=== PATIENT | male | born 1960 | race Caucasian/White ===

== ENCOUNTER → 2016-12-09 | Outpatient (CLI) | payer OTHER ==
[~2016-12-09] MED LIST: LORA10TA51 PO; MAGN400T6 PO; OMEP20TA14 PO; SUMA100T15 PO
[2016-12-09 11:22] LABS: ALB/GLOB RATIO 1.4 (0.9-2); ALT/SGPT 42 U/L (12-78); AST/SGOT 18 U/L (15-37); BLOOD UREA NITROGEN 15 mg/dl (7-18); BUN/CREATININE RATIO 12.4 (10-20); CALCIUM 8.7 mg/dl (8.5-10.1); CARBON DIOXIDE 30 mmol/L (21-32); CHLORIDE 108 mmol/L (98-107); CHOLESTEROL 196 mg/dl (0-200); GLUCOSE 154 mg/dl (70-99); POTASSIUM 4.2 mmol/L (3.5-5.1); SODIUM 142 mmol/L (136-145); TRIGLYCERIDES 218 mg/dl (0-150); VERY LOW DENSITY LIPOPROT CALC 44 mg/dl
[2016-12-09 11:31] LABS: ALKALINE PHOSPHATASE 105 U/L (45-117); CHOLESTEROL/HDL RATIO 5.4; HDL CHOLESTEROL 36 mg/dl; LDL CHOLESTEROL CALCULATED 116 mg/dl; THYROID STIMULATING HORMONE 0.208 uIu/ml (0.300-4.500)
[2016-12-09 12:47] LABS: ESTIMATED AVERAGE GLUCOSE 151 mg/dl; HA1C FLAG Normal (Normal)
--- NOTE | 2016-12-14 08:23 | CODING QUERY MEDICAL NECESSITY ---
CQSUPPORTING DIAGNOSIS NEEDED A supporting diagnosis is required for the test/procedure performed on this patient in order for us to be reimbursed by the patient's insurance. Please provide a supporting diagnosis for the following test/procedure listed below next to the test name along with your signature. *If there is no additional diagnosis for this patient that would support the following test/procedure please document that below next to the test/procedure. Test(s)/Procedure(s) that require a supporting diagnosis: DOS 12/09/16 GLYCATED HEMOGLOBIN TEST Provider Signature: Date: Thank you Purnima Qureshi [facility] Information [facility] Once completed, please kindly fax back to [phone] For questions please call [phone]
== END | disposition home or self-care (01) ==
LOC: C.LAB 10:07
PROVIDERS: ATTEND Family Medicine
DX: E78.5 Hyperlipidemia, unspecified (principal); R73.03 Prediabetes; R94.6 Abnormal results of thyroid function studies; Z11.59 Encounter for screening for other viral diseases

== ENCOUNTER → 2016-12-25 | Outpatient (CLI) | payer OTHER | END | disposition home or self-care (01) | LOC: C.PATHSPEC 17:45 | PROVIDERS: ATTEND Orthopaedic Surgery | DX: R22.31 Localized swelling, mass and lump, right upper limb (principal) ==

== ENCOUNTER → 2017-01-09 | Outpatient (CLI) | payer OTHER ==
[~2017-01-09] VITALS: Ht 180.3 cm; Wt 92.4 kg
[2017-01-09 16:55] VITALS: BP 124/85; PULSE 85; Ht 180.3 cm; Wt 92.4 kg
== END ==
LOC: C.NEUR 15:35
PROVIDERS: ATTEND Internal Medicine Pulmonary Disease
DX: G47.30 Sleep apnea, unspecified (principal)

== ENCOUNTER → 2017-01-30 | Outpatient (CLI) | payer OTHER ==
[2017-01-30 15:23] LABS: THYROID STIMULATING HORMONE 0.207 uIu/ml (0.300-4.500)
[2017-01-30 15:26] LABS: RATIO 8.6 mcg/mg (0-30.0)
[2017-01-31 06:48] LABS: ESTIMATED AVERAGE GLUCOSE 134 mg/dl; HA1C FLAG Normal (Normal)
[2017-02-01 19:41] LABS: TSI <89 % baseline (<140)
--- NOTE | 2017-02-06 11:59 | CODING QUERY MEDICAL NECESSITY ---
CQSUPPORTING DIAGNOSIS NEEDED A supporting diagnosis is required for the test/procedure performed on this patient in order for us to be reimbursed by the patient's insurance. Please provide a supporting diagnosis for the following test/procedure listed below next to the test name along with your signature. *If there is no additional diagnosis for this patient that would support the following test/procedure please document that below next to the test/procedure. Test(s)/Procedure(s) that require a supporting diagnosis: DOS 01/30/17 VITAMIN D TEST VITAMIN B12 TEST Provider Signature: Date: Thank you Purinma Qureshi [facility] Information Management Once completed, please kindly fax back to [phone] For questions please call [phone]
== END | disposition home or self-care (01) ==
LOC: C.LAB1850 13:36
PROVIDERS: ATTEND Internal Medicine Endocrinology, Diabetes & Metabolism
DX: E11.9 Type 2 diabetes mellitus without complications (principal); R94.6 Abnormal results of thyroid function studies; E55.9 Vitamin D deficiency, unspecified

== ENCOUNTER → 2017-07-12 | Outpatient (CLI) | payer OTHER ==
[2017-07-12 10:31] LABS: ALT/SGPT 51 U/L (12-78); AST/SGOT 25 U/L (15-37); BLOOD UREA NITROGEN 16 mg/dl (7-18); BUN/CREATININE RATIO 12.2 (10-20); CARBON DIOXIDE 28 mmol/L (21-32); CHLORIDE 106 mmol/L (98-107); CHOLESTEROL 93 mg/dl (0-200); GLUCOSE 98 mg/dl (70-99); POTASSIUM 4.4 mmol/L (3.5-5.1); SODIUM 139 mmol/L (136-145); TRIGLYCERIDES 116 mg/dl (0-150); VERY LOW DENSITY LIPOPROT CALC 23 mg/dl
[2017-07-12 10:39] LABS: ALB/GLOB RATIO 1.5 (0.9-2); ALKALINE PHOSPHATASE 85 U/L (45-117); CHOLESTEROL/HDL RATIO 2.4; HDL CHOLESTEROL 39 mg/dl; LDL CHOLESTEROL CALCULATED 31 mg/dl
[2017-07-12 11:02] LABS: ESTIMATED AVERAGE GLUCOSE 128 mg/dl; HA1C FLAG Normal (Normal)
== END | disposition home or self-care (01) ==
LOC: C.LAB 09:17
PROVIDERS: ATTEND Internal Medicine Endocrinology, Diabetes & Metabolism
DX: I10 Essential (primary) hypertension (principal); E11.9 Type 2 diabetes mellitus without complications; R94.6 Abnormal results of thyroid function studies; E55.9 Vitamin D deficiency, unspecified

== ENCOUNTER → 2017-10-02 | Outpatient (CLI) | payer OTHER ==
[~2017-10-02] VITALS: Ht 177.8 cm; Wt 88.8 kg
[2017-10-02 16:12] VITALS: BP 120/80; PULSE 123; Ht 177.8 cm; Wt 88.8 kg
== END | disposition home or self-care (01) ==
LOC: C.NEUR 15:19
PROVIDERS: ATTEND Physician Assistant Medical
DX: G47.30 Sleep apnea, unspecified (principal)

== ENCOUNTER → 2017-10-23 | Outpatient (CLI) | payer OTHER ==
--- NOTE | 2017-10-23 14:53 | DIAGNOSTIC IMAGING REPORT ---
R RIBS UNILATERAL WITH PA CHEST (7 views) CLINICAL HISTORY: W19.XXXA Fall, [id number] Rib pain on right [id number] COMPARISON STUDY: No previous studies for comparison. FINDINGS: The erect chest reveals an old right clavicular fracture. There is no pneumothorax. There is no focal pulmonary consolidation. No right-sided rib fractures are visualized. IMPRESSION: 1. No evidence of pneumothorax. No right-sided rib fractures are visualized. Electronically signed by: Nico Purcell M.D. 10/23/2017 2:51 PM Dictated Date/Time: 10/23/2017 2:50 PM
== END | disposition home or self-care (01) ==
LOC: C.RAD 14:20
PROVIDERS: ATTEND Nurse Practitioner Adult Health
DX: R07.81 Pleurodynia (principal); W19.XXXA Unspecified fall, initial encounter

== ENCOUNTER → 2018-01-01 | Outpatient (CLI) | payer OTHER ==
[~2018-01-01] VITALS: Ht 177.8 cm; Wt 88.8 kg
[2018-01-01 16:33] VITALS: BP 130/88; PULSE 87; Ht 177.8 cm; Wt 88.8 kg
== END | disposition home or self-care (01) ==
LOC: C.NEUR 14:05
PROVIDERS: ATTEND Internal Medicine Pulmonary Disease
DX: G47.30 Sleep apnea, unspecified (principal)